=== PATIENT | male | born 1955 | race Caucasian/White ===

== ENCOUNTER 2023-02-09 21:03 | Observation (INO) ==
--- NOTE | 2023-02-09 21:13 | EKG ---
Test Reason : chest pain Blood Pressure : */* mmHG Vent. Rate : 108 BPM Atrial Rate : 108 BPM P-R Int : 168 ms QRS Dur : 86 ms QT Int : 346 ms P-R-T Axes : 37 -41 1 degrees QTc Int : 463 ms Sinus tachycardia Left axis deviation Cannot rule out Anterior infarct , age undetermined Abnormal ECG No previous ECGs available Confirmed by Shane Doyle ([id number]) on 02/10/2023 8:21:03 AM Referred By: Confirmed By: Shane Doyle
--- NOTE | 2023-02-09 21:18 | DR.CP ---
HPI Time Seen Time Seen by Provider: 02/09/23 21:17 PCP Primary Care Physician: KASSI HPI Comment HPI Comment: PATIENT IS 67YR OLD MALE IN ER WITH SHARP 8/10 ABDOMINAL PAIN RADIATING TO ABDOMEN DOWN TO THE UMBILICUS. PATIENT IS NAUSEATED BUT NO VOMITING OR DIARRHEA. . NO DYSURIA. SIMILAR PAIN THE PAST BUT MORE SEVERE AND MORE PERSISTANT. NO SIGNIFICANT MEDICAL OR SURGICAL HISTORY. Complaint Chief Complaint Doctor Comments: CHEST PAIN, ABDOMINAL PAIN Chief Complaint:: PT C/O PAIN IN MID CHEST DOWN TO HIS LOWER ABD PT STATES" I'VE HAD THIS BEFORE AND DR SOLITARIO SAID IT WAS JUST GAS" COVID-19 Coronavirus risk:travel/contact w/high risk person: No Has patient experienced Coronavirus symptoms: No Reviewed Nurses Notes Review: Yes Source History Provided: Patient Mode of Arrival Mode of Arrival: Ambulatory Timing Onset of Chief Complaint: 02/09/23 Location Chest Pain Radiation Location: Abdomen Associated Signs and Symptoms Associated Signs and Symptoms: Abdominal Pain PMH PMH Past Medical History: No Past Surgical History: No Family History History of Family Medical Conditions: No Social History Does patient currently use any type of tobacco product: No Have you used tobacco products in the last 12 months: No Type of Tobacco Use: None Does any household member use tobacco: No Alcohol Use: None Do you use any recreational Drugs:: No Lives With: Family Lives Where: Home Travel Risk Coronavirus risk:travel/contact w/high risk person: No Has patient experienced Coronavirus symptoms: No Infectious screening In the last 2 months have you had wt loss of >10#?: NO Have you had fever, night sweats or hemotysis?: No Have you traveled outside the country in the last 6 months?: No Isolation: Standard ROS Review of Systems Constitutional: No Symptoms Reported; negative Fever, Weakness or Fatigue Eyes: No Symptoms Reported; negative Blurred Vision ENTM: No Symptoms Reported; negative Nose Discharge or Nose Congestion Respiratoy: No Symptoms Reported; negative Moist Cough or Short of Breath Cardiovascular: No Symptoms Reported; negative Chest Pain Gastrointestinal/Abdominal: No Symptoms Reported, Abdominal Pain and Nausea; negative Diarrhea or Vomiting Genitourinary: No Symptoms Reported; negative Dysuria, Frequency or Hematuria Neurological: Headache; negative Weakness or Dizziness Musculoskeletal: No Symptoms Reported; negative Muscle Pain Integumentary: No Symptoms Reported; negative Rash or Juandice Hematologic/Lymphatic: No Symptoms Reported; negative Easy Bruising Endocrine: No Symptoms Reported; negative Increased Thirst or Increased Urine Psychiatric: No Symptoms Reported All Other Systems: Reviewed and Negative PE Vitals Vitals: Pulse Rate 86 Pulse Rate 76 Pulse Rate 81 Pulse Rate 79 Pulse Rate 81 Pulse Rate 76 Pulse Rate 78 Pulse Rate 80 Pulse Rate 84 Pulse Rate 72 Pulse Rate 90 Pulse Rate 84 Pulse Rate 84 Pulse Rate 97 Pulse Rate 104 Pulse Rate 99 Pulse Rate 91 Pulse Rate 99 Pulse Rate 101 Pulse Rate 90 Pulse Rate 102 Pulse Rate 100 Respiratory Rate 18 Respiratory Rate 18 Respiratory Rate 21 Respiratory Rate 19 Blood Pressure [Left Arm] 118/71 Blood Pressure 119/77 Blood Pressure 117/70 Blood Pressure 109/68 Blood Pressure 118/71 Blood Pressure 122/72 Blood Pressure 121/71 Blood Pressure 120/71 Blood Pressure 116/67 Blood Pressure 125/72 Blood Pressure 138/74 Blood Pressure 125/69 Blood Pressure 115/65 Blood Pressure 156/87 Blood Pressure 125/70 Blood Pressure 141/92 Blood Pressure 147/80 Blood Pressure 144/79 O2 Sat by Pulse Oximetry 88 O2 Sat by Pulse Oximetry 93 O2 Sat by Pulse Oximetry 91 O2 Sat by Pulse Oximetry 95 O2 Sat by Pulse Oximetry 93 O2 Sat by Pulse Oximetry 95 O2 Sat by Pulse Oximetry 97 O2 Sat by Pulse Oximetry 93 O2 Sat by Pulse Oximetry 93 O2 Sat by Pulse Oximetry 96 O2 Sat by Pulse Oximetry 98 O2 Sat by Pulse Oximetry 76 O2 Sat by Pulse Oximetry 98 O2 Sat by Pulse Oximetry 97 O2 Sat by Pulse Oximetry 98 O2 Sat by Pulse Oximetry 99 O2 Sat by Pulse Oximetry 97 O2 Sat by Pulse Oximetry 99 O2 Sat by Pulse Oximetry 98 O2 Sat by Pulse Oximetry 99 O2 Sat by Pulse Oximetry 99 O2 Sat by Pulse Oximetry 98 General Limitations: No Limitations General Appearance: Alert and In No Apparent Distress Head Head Exam: Normal Inspection and Atraumatic Eyes Eye exam: Normal Appearance and PERRL; negative Scleral Icterus or Conjunctival Injection ENT ENT Exam: Normal Exam, Normal Oropharynx, Normal External Ear Exam and TM's Normal Bilaterally Chest Chest Inspection: Normal Inspection and Symmetric Chest Wall Rise; negative Tenderness Respiratory Respiratory Exam: Normal Lung Sounds Bilat; negative Accessory Muscle Use, Chest Wall Tenderness or Respiratory Distress Respiratory Exam: Bilateral: Clear to Auscultation Cardiovascular Cardiovascular Exam: Regular Rate, Normal Rhythm and Normal Heart Sounds; negative Systolic Murmur or Diastolic Murmur Pulse: Normal Edema: Normal Abdominal Exam Abdominal Exam: Normal Bowel Sounds, Soft and Tenderness Abdominal Tenderness: Diffuse and Moderate Extremities Extremities Exam: Normal Inspection, Tenderness and Normal Capillary Refill Back Back Exam: Normal Inspection; negative (R) CVA Tenderness or (L) CVA Tenderness Neurologic Neurological Exam: Alert and Oriented X3; negative Motor Sensory Deficit Psychiatric Psychiatric Exam: Normal Affect and Normal Mood Skin Skin Exam: Intact MDM Differential Diagnosis Differential Diagnosis: Angina, Chest Wall Pain, Costochondritis, Pericarditis, Pancreatitis and Pneumonia (BOWEL OBSTRUCTION, CHOLECYSTITIS, UTI.) COURSE Treatment Treatment: SEE ORDERS DONE WHILE PATIENT WAS IN ER. ROR Labs Reviewed Result Diagrams: 02/09/23 21:18 02/09/23 21:18 Laboratory: WBC 15.1 X10^3/uL (3.6-10.0) H 02/09/23 21:18 RBC 6.09 X10^6/uL (4.7-6.0) H 02/09/23 21:18 Hgb 19.7 g/dL (13.5-18.0) H* 02/09/23 21:18 Hct 56.1 % (42.0-54.0) H* 02/09/23 21:18 MCV 92.2 fL (80.0-100.0) 02/09/23 21:18 MCH 32.3 pg (27.0-34.0) 02/09/23 21:18 MCHC 35.0 g/dL (33.0-35.0) 02/09/23 21:18 RDW 13.2 % (11.6-16.5) 02/09/23 21:18 Plt Count 255 X10^3/uL (150.0-450.0) 02/09/23 21:18 MPV 7.9 fL (7.4-11.0) 02/09/23 21:18 Neut % (Auto) 87.5 % (42.0-75.0) H 02/09/23 21:18 Lymph % (Auto) 8.5 % (21.0-51.0) L 02/09/23 21:18 Motley % (Auto) 3.4 % (0.0-13.0) 02/09/23 21:18 Eos % (Auto) 0.1 % (0.9-2.9) L 02/09/23 21:18 Baso % (Auto) 0.5 % (0.2-1.0) 02/09/23 21:18 Neut # (Auto) 13.2 x10^3/uL (2.2-4.8) H 02/09/23 21:18 Lymph # (Auto) 1.3 X10^3/uL (1.3-2.9) 02/09/23 21:18 Motley # (Auto) 0.5 x10^3/uL (0.3-0.8) 02/09/23 21:18 Eos # (Auto) 0.0 x10^3/uL (0.0-0.2) 02/09/23 21:18 Baso # (Auto) 0.1 X10^3/uL (0.0-0.1) 02/09/23 21:18 Absolute Nucleated RBC 0.1 /100WBC 02/09/23 21:18 PT 12.8 SECONDS (11.8-14.3) 02/09/23 21:18 INR Target Range - 02/09/23 21:18 INR 0.98 (0.8-1.3) 02/09/23 21:18 APTT 32.1 SECONDS (22.9-36.5) 02/09/23 21:18 PTT Comment - 02/09/23 21:18 Sodium 139 mmol/L (136-145) 02/09/23 21:18 Corrected Sodium 141 mmol/L (136-145) 02/09/23 21:18 Potassium 3.6 mmol/L (3.5-5.1) 02/09/23 21:18 Chloride 101 mmol/L (98-107) 02/09/23 21:18 Carbon Dioxide 29.9 mmol/L (21-32) 02/09/23 21:18 BUN 9 mg/dL (7-18) 02/09/23 21:18 Creatinine 1.52 mg/dL (0.70-1.30) H 02/09/23 21:18 Est GFR (MDRD) Af Amer 59 (>60) 02/09/23 21:18 Est GFR (MDRD) Non-Af 49 (>60) L 02/09/23 21:18 Glucose 171 mg/dL (65-99) H 02/09/23 21:18 Calcium 9.2 mg/dL (8.5-10.1) 02/09/23 21:18 Corrected Calcium TNP 02/09/23 21:18 Total Bilirubin 0.70 mg/dL (0.2-1.0) 02/09/23 21:18 AST 28 Units/L (15-37) 02/09/23 21:18 ALT 35 Units/L (12-78) 02/09/23 21:18 Alkaline Phosphatase 81 Units/L (46-116) 02/09/23 21:18 Creatine Kinase 211 Units/L (39-308) 02/09/23 21:18 Troponin I High Sens 7.8 ng/L (4.0-60.0) 02/09/23 21:18 Total Protein 7.5 g/dL (6.4-8.2) 02/09/23 21:18 Albumin 4.3 g/dL (3.4-5.0) 02/09/23 21:18 Globulin 3.2 g/dL (2.5-4.5) 02/09/23 21:18 Albumin/Globulin Ratio 1.3 Ratio (1.1-2.1) 02/09/23 21:18 Opioid Opioid Risk Tool Age (Jorge box if 16-45): No History of Preadolescent Sexual Abuse: No Total: 0 Total Score Risk Category: Low Risk Copyright: Nima JASMINE predicting aberrant behaviors Discharge Plan Diagnosis Discharge Problem: Abdominal pain, Cholelithiasis, Enlarged prostate Discharge Plan Patient Disposition: ADMITTED INPATIENT Condition: Stable
[2023-02-09 21:28] LABS: BASOPHILS # (AUTO) 0.1 X10^3/uL (0.0-0.1); BASOPHILS % (AUTO) 0.5 % (0.2-1.0); EOSINOPHILS % (AUTO) 0.1 % (0.9-2.9); LYMPHOCYTES # (AUTO) 1.3 X10^3/uL (1.3-2.9); LYMPHOCYTES % (AUTO) 8.5 % (21.0-51.0); MEAN CORPUSCULAR HEMOGLOBIN 32.3 pg (27.0-34.0); MEAN CORPUSCULAR VOLUME 92.2 fL (80.0-100.0); MEAN PLATELET VOLUME 7.9 fL (7.4-11.0); MONOCYTES # (AUTO) 0.5 x10^3/uL (0.3-0.8); MONOCYTES % (AUTO) 3.4 % (0.0-13.0); NEUTROPHILS # (AUTO) 13.2 x10^3/uL (2.2-4.8); NEUTROPHILS % (AUTO) 87.5 % (42.0-75.0); PLATELET COUNT 255 X10^3/uL (150.0-450.0); RED BLOOD COUNT 6.09 X10^6/uL (4.7-6.0); RED CELL DISTRIBUTION WIDTH 13.2 % (11.6-16.5); WHITE BLOOD COUNT 15.1 X10^3/uL (3.6-10.0)
[2023-02-09 21:33] LABS: INR 0.98 (0.8-1.3)
[2023-02-09 21:35] LABS: HEMATOCRIT 56.1 % (42.0-54.0)
[2023-02-09 21:36] LABS: HEMOGLOBIN 19.7 g/dL (13.5-18.0)
[2023-02-09 21:44] LABS: ALANINE AMINOTRANSFERASE 35 Units/L (12-78); ALBUMIN 4.3 g/dL (3.4-5.0); ALKALINE PHOSPHATASE 81 Units/L (46-116); ASPARTATE AMINO TRANSFERASE 28 Units/L (15-37); BLOOD UREA NITROGEN 9 mg/dL (7-18); CALCIUM 9.2 mg/dL (8.5-10.1); CARBON DIOXIDE 29.9 mmol/L (21-32); CHLORIDE 101 mmol/L (98-107); COR NA(FOR HYPERGLY) 141 mmol/L (136-145); CREATINE KINASE 211 Units/L (39-308); CREATININE 1.52 mg/dL (0.70-1.30); GLUCOSE 171 mg/dL (65-99); POTASSIUM 3.6 mmol/L (3.5-5.1); SODIUM 139 mmol/L (136-145); TOTAL PROTEIN 7.5 g/dL (6.4-8.2); eGFR NON BLACK RACES 49 (>60)
[2023-02-09] MEDS ORDERED: LEVSIN/MAALOX/LIDOC VISC PO ONE (21:45)
[2023-02-09] MEDS ORDERED: PEPCID 20 MG VIAL 20 MG in NS 50 ML IV 50 ML IV ONE (21:50)
[2023-02-09] MEDS ORDERED: PEPCID 20 MG VIAL ONE (21:51)
[2023-02-09] MEDS ORDERED: NS 50 ML IV 50 ML IV ONE (21:51)
[2023-02-09] MEDS ORDERED: DEMEROL INJ IVP ONE (22:15)
[2023-02-09] MEDS ORDERED: ZOFRAN INJ 4 MG VIAL IVP ONE (22:15)
[2023-02-09] MEDS ORDERED: DEMEROL INJ ONE (22:20)
[2023-02-09] MEDS ORDERED: ZOFRAN INJ 4 MG VIAL ONE (22:20)
--- NOTE | 2023-02-09 22:56 | CT ---
PROCEDURE: CT Abdomen and Pelvis without Contrast .HISTORY: Severe abdomen pain.TECHNIQUE: Axial images were performed through the abdomen and pelvis without the administration of IV contrast with multiplanar reformations . Oral contrast was not administered . Dose reduction techniques including Automated Exposure Control (AEC) and adjustment of mA and kV were utilized .COMPARISON: None .TECHNICAL QUALITY: Satisfactory .FINDINGS:Clear lung bases.Liver, spleen, adrenals, pancreas show no abnormality.Kidneys show no stones or obstruction.Possible tiny stone in the gallbladder near the neck with no inflammation and normal biliary tree.No ascites or pneumoperitoneum.Mild atherosclerosis aorta.No lymphadenopathy.No bowel obstruction or inflammation. Mild colonic diverticulosis. Normal appendix.Pelvis shows no masses or free fluid. Mild prostatomegaly. Normal urinary bladder.No acute bony abnormality.IMPRESSION:1. Possible cholelithiasis.2. Mild colonic diverticulosis.3. Mild prostatomegaly.4. No other significant abnormality identified.Electronically signed by: Yung Tillman (February 09, 2023 22:55:19)
--- NOTE | 2023-02-09 23:26 | RAD ---
HISTORYPT C/O PAIN IN MID CHEST DOWN TO HIS LOWER ABD PT STATES" I'VE HAD THIS BEFORE AND DR SOLITARIO SAID IT WAS JUST GAS"STUDYCHEST, 1 VIEWCOMPARISONNone availableTECHNIQUEChest radiographic imaging, AP portable projection, 1 imageFINDINGSNo cardiomegaly.No focal airspace disease.Mild increased interstitial markings.No pleural effusion.No pneumothorax.No acute osseous abnormality.IMPRESSIONFindings could represent mild cardiogenic edema and/or chronic interstitial changes.Electronically signed by: Jad Salazar (February 09, 2023 23:25:51)
[2023-02-10] MEDS ORDERED: ZOFRAN INJ 4 MG VIAL IVP PRN (01:49)
[2023-02-10] MEDS ORDERED: DILAUDID INJ IVP PRN (01:49)
[2023-02-10] MEDS ORDERED: NS 1,000 ML IV 1,000 ML ONE (01:57)
[2023-02-10] MEDS: NS 1,000 ML IV 1,000 ML IV SCH ×4 (02:15→21:02)
[2023-02-10 02:33] VITALS: BMI 24.0
[2023-02-10 06:18] LABS: BASOPHILS % (AUTO) 0.2 % (0.2-1.0); HEMATOCRIT 48.7 % (42.0-54.0); HEMOGLOBIN 17.1 g/dL (13.5-18.0); LYMPHOCYTES % (AUTO) 5.2 % (21.0-51.0); MEAN CORPUSCULAR HEMOGLOBIN 32.2 pg (27.0-34.0); MEAN CORPUSCULAR HGB CONC 35.1 g/dL (33.0-35.0); MEAN CORPUSCULAR VOLUME 91.8 fL (80.0-100.0); MEAN PLATELET VOLUME 7.9 fL (7.4-11.0); MONOCYTES # (AUTO) 1.3 x10^3/uL (0.3-0.8); MONOCYTES % (AUTO) 6.9 % (0.0-13.0); NEUTROPHILS # (AUTO) 16.8 x10^3/uL (2.2-4.8); NEUTROPHILS % (AUTO) 87.7 % (42.0-75.0); PLATELET COUNT 234 X10^3/uL (150.0-450.0); RED CELL DISTRIBUTION WIDTH 13.1 % (11.6-16.5); WHITE BLOOD COUNT 19.1 X10^3/uL (3.6-10.0)
[2023-02-10 06:45] LABS: ALANINE AMINOTRANSFERASE 30 Units/L (12-78); ALBUMIN 3.5 g/dL (3.4-5.0); ALKALINE PHOSPHATASE 61 Units/L (46-116); AMYLASE 84 Units/L (25-115); ASPARTATE AMINO TRANSFERASE 25 Units/L (15-37); BLOOD UREA NITROGEN 11 mg/dL (7-18); CALCIUM 8.2 mg/dL (8.5-10.1); CARBON DIOXIDE 26.6 mmol/L (21-32); CHLORIDE 105 mmol/L (98-107); COR NA(FOR HYPERGLY) 140 mmol/L (136-145); CREATININE 1.36 mg/dL (0.70-1.30); GLUCOSE 118 mg/dL (65-99); LIPASE 260 Units/L (73-393); MAGNESIUM 2.2 mg/dL (2.0-2.9); SODIUM 140 mmol/L (136-145); TOTAL PROTEIN 6.4 g/dL (6.4-8.2); eGFR NON BLACK RACES 55 (>60)
[2023-02-10] MEDS ORDERED: CIPRO IV 400 MG PREMIX* 400 MG/200 ML IV.SOLN. IV SCH (10:00)
[2023-02-10] MEDS: LEVAQUIN PREMIX IV 500 MG 500 MG/100 ML BAG IV SCH (11:27)
--- NOTE | 2023-02-10 12:52 | US ---
HISTORY: Right upper quadrant abdominal pain.Study: Right upper quadrant abdominal ultrasoundComparison: None availableTechnique: Multiple jerome scale and color flow Doppler images of the right upper quadrant were obtained.Findings:The liver is homogeneously echogenic/fatty in appearance. No focal intraparenchymal mass or intrahepatic biliary ductal dilatation can be observed. The gallbladder is distended and filled with gallbladder sludge and gallstones. The common bile duct is unremarkable measuring 2 mm. [No pericholecystic fluid or gallbladder wall thickening can be observed]. The CBD measures [within normal limits]. The right kidney appears normal in size without focal parenchymal mass or nephrolithiasis. The right kidney measurers 10 x 5 cm. No hydronephrosis or perirenal fluid can be observed. The pancreas is largely obscured by overlying bowel gas. No ascites or focal fluid collection is identified on this exam.IMPRESSION: The liver is homogeneously echogenic/fatty in appearance, suggesting hepatic steatosis. The gallbladder is filled with gallbladder sludge and several small gallstones without convincing sonographic evidence for acute cholecystitis. No other RUQ abnormalities seen.Electronically signed by: CHRISTIANNE GAMINO III (February 10, 2023 12:52:06)
[2023-02-10 18:26] LABS: BILIRUBIN,URINE NEGATIVE (NEGATIVE); BLOOD/HEMOGLOBIN,URINE NEGATIVE (NEGATIVE); GLUCOSE, URINE NEGATIVE (NEGATIVE); KETONES,URINE 1+ (NEGATIVE); LEUKOCYTE ESTERASE ,URINE 1+ (NEGATIVE); NITRITES,URINE NEGATIVE (NEGATIVE); PROTEIN,URINE 1+ (NEGATIVE); UROBILINOGEN,URINE NORMAL (NORMAL)
[2023-02-10 18:35] LABS: APPEARANCE,URINE CLEAR (CLEAR); COLOR,URINE DARK YELLOW (YELLOW)
[2023-02-10 18:36] LABS: BACTERIA,URINE NEGATIVE /HPF (NEGATIVE); RBC,URINE NONE SEEN /HPF (0-3); SQUAMOUS EPITHELIAL CELL,UR RARE /HPF (NEGATIVE)
--- NOTE | 2023-02-10 22:08 | DR.H&P ---
H&P - History & Physical for Day of: H&P Date: 02/10/23 - Chief Complaint Chief Complaint: ABDOMINAL PAIN, CHEST PAIN, NAUSEA - History of Present Illness History of Present Illness: IS A 67 YEAR OLD PATIENT OF OURS. HE PRESENTED TO THE ER WITH COMPLAINTS OF CHEST PAIN AND ABDOMINAL PAIN. PAIN STARTS IN THE CHEST AND RADIATES DOWN TO THE UMBILICUS. HE RATES ABDOMINAL PAIN AN 8/10. HE DESCRIBES PAIN INTERMITTENT AND CRAMPING. HE ADMITS TO NAUSEA, BUT DENIES VOMITING OR DIARRHEA. HE RATES CHEST PAIN A 4/10 AND DESCRIBES IT INTERMITTENT AND CRAMPING. HE DENIES PAST OR PRESENT MEDICAL HISTORY AND IS NOT CURRENTLY ON ANY MEDICATIONS. EXAMINATION REVEALED DIFFUSE TENDERNESS UPON PALPATION OF THE ABDOMEN. NORMAL BOWEL SOUNDS ARE NOTED IN ALL QUADRANTS. NO REBOUND TENDERNESS NOTED. ON ARRIVAL TO THE ER, HIS VITALS WERE: 98. 6-97-20-100%-162/92. LABS WERE OBTAINED. WBC 15.1, RBC 6.09, HGB 19.7, HCT 56.1, PLT COUNT 255, PT 12.8, INR 0.98, PTT 32.1, SODIUM 139, POTASSIUM 3.6, CHLORIDE 101, CARBON DIOXIDE 29.9, BUN 9, CREATININE 1.52, GLUCOSE 271, CALCIUM 9.2, AST 28, ALT 35, ALK PHOS 81, CREATINE KINASE 211, TROPONIN 7.8, TOTAL PROTEIN 7.5, ALBUMIN 4.3. A URINALYSIS WAS OBTAINED AND REVEALED: WBC 3-5, RBC NONE SEEN, NASIR KOCYTES 1+, BACTERIA NEGATIVE, NITRITE NEGATIVE. A URINE CULTURE WAS SET UP. A CHEST XRAY WAS OBTAINED AND REVEALED: Findings could represent mild cardiogenic edema and/or chronic interstitial changes. AN ABDOMEN/PELVIS CT WITHOUT CONTRAST WAS OBTAINED AND REVEALED: 1. Possible cholelithiasis. 2. Mild colonic diverticulosis. 3. Mild prostatomegaly. 4. No other significant abnormality identified. EKG REVEALED: SINUS TACHYCARDIA WITH HR 108. IN THE ER, SHE WAS GIVEN PEPCID 20MG IV X 1 DOSE, DEMEROL 25MG IV X 1, ZOFRAN 4MG IV X 1 DOSE. HE ADMITTED TO RELIEF OF PAIN AFTER RECEIVING THE DEMEROL. PATIENT WAS ADMITTED TO THE HOSPITAL OBSERVATION STATUS FOR FURTHER EVALUATION AND TREATMENT OF ABDOMINAL PAIN, CHOLELITHIASIS, AND LEUKOCYTOSIS. HE WAS STARTED ON NORMAL SALINE AT 100 ML/HR, LEVAQUIN 500MG IV DAILY, ZOFRAN 4MG IV Q6H PRN, AND DILAUDID 1MG IV Q6H PRN. WE WILL HOLD HIM NPO AND OBTAIN A GALLBLADDER ULTRASOUND. WE WILL CONSULT , GENERAL SURGEON. OTHERWISE, WE WILL FOLLOW-UP WITH AM LABS AND CONTINUE TO MONITOR. TIME SPENT ON CLINICAL ASSESSMENT, REVIEWING LABS AND IMAGING, DECISION MAKING, AND DOCUMENTATION GREATER THAN 75 MINUTES. - Past Medical History Additional Medical History: NO MEDICAL HISTORY - Past Surgical History Additional Surgical History: EYE SURGERY - Social History Does patient currently use any type of tobacco product: No Have you used tobacco products in the last 12 months: No Type of Tobacco Use: None Does any household member use tobacco: No Alcohol Use: None Drug Use: None - Medications Home Medications: Home Medications Medication Instructions Recorded Confirmed Type NK 02/10/23 02/10/23 History - Review of Systems Constitutional: Weakness Eyes: No Symptoms Reported Respiratory: No Symptoms Reported Cardiovascular: Chest Pain Gastrointestinal: Nausea, Abdominal Pain, Melena. denies: Vomiting, Diarrhea, Hematochezia Genitourinary: No Symptoms Reported Musculoskeletal: No Symptoms Reported Skin: No Symptoms Reported Neurological: Weakness - Physical Exam Vital Signs: Temperature 99.4 F Temperature 98.6 F Pulse Rate [Left] 111 Pulse Rate [Left] 107 Respiratory Rate 18 Respiratory Rate 18 Blood Pressure [Left Arm] 144/78 Blood Pressure [Left Arm] 137/76 O2 Sat by Pulse Oximetry 94 O2 Sat by Pulse Oximetry 95 Oriented: Normal Eyes: Normal Ear: Normal Nose: Normal Throat: Normal Respiratory: Diminished Throughout Cardiovascular: Normal : Normal Auscultation: Bowel Sounds: Normal Palpation: Normal Tenderness: Diffuse, Moderate. negative: Rebound, Guarding, Rigidity Skin: Normal Musculoskeletal: Normal Psychiatric: Normal Mood Description: Calm Affect: Normal Speech Pattern: Clear - Assessment/Plan (1) Abdominal pain Qualifiers: Abdominal location: generalized Qualified Code(s): R10.84 - Generalized abdominal pain Status: Acute Plan: ADMIT, NORMAL SALINE AT 100 ML/HR, LEVAQUIN 500MG IV DAILY, ZOFRAN 4MG IV Q6H PRN, AND DILAUDID 1MG IV Q6H PRN. OBTAIN GALLBLADDER ULTRASOUND (2) Leukocytosis Qualifiers: Leukocytosis type: unspecified Qualified Code(s): D72.829 - Elevated white blood cell count, unspecified Status: Acute (3) Cholelithiasis Qualifiers: Cholelithiasis location: gallbladder Cholecystitis presence: without cholecystitis Biliary obstruction: without biliary obstruction Qualified Code(s): K80.20 - Calculus of gallbladder without cholecystitis without obstruction Status: Acute (4) Enlarged prostate Status: Acute - Allergies Allergies/Adverse Reactions: Allergies Allergy/AdvReac Type Severity Reaction Status Date / Time No Known Allergies Allergy Verified 02/09/23 21:45
[2023-02-11 05:48] LABS: BASOPHILS # (AUTO) 0.1 X10^3/uL (0.0-0.1); BASOPHILS % (AUTO) 0.4 % (0.2-1.0); EOSINOPHILS # (AUTO) 0.2 x10^3/uL (0.0-0.2); EOSINOPHILS % (AUTO) 1.6 % (0.9-2.9); HEMATOCRIT 46.6 % (42.0-54.0); HEMOGLOBIN 16.2 g/dL (13.5-18.0); LYMPHOCYTES # (AUTO) 1.2 X10^3/uL (1.3-2.9); LYMPHOCYTES % (AUTO) 10.4 % (21.0-51.0); MEAN CORPUSCULAR HEMOGLOBIN 32.4 pg (27.0-34.0); MEAN CORPUSCULAR HGB CONC 34.8 g/dL (33.0-35.0); MEAN CORPUSCULAR VOLUME 93.1 fL (80.0-100.0); MEAN PLATELET VOLUME 7.8 fL (7.4-11.0); MONOCYTES # (AUTO) 1.2 x10^3/uL (0.3-0.8); NEUTROPHILS # (AUTO) 9.1 x10^3/uL (2.2-4.8); NEUTROPHILS % (AUTO) 77.6 % (42.0-75.0); PLATELET COUNT 200 X10^3/uL (150.0-450.0); RED CELL DISTRIBUTION WIDTH 13.4 % (11.6-16.5); WHITE BLOOD COUNT 11.7 X10^3/uL (3.6-10.0)
[2023-02-11 06:08] LABS: ALANINE AMINOTRANSFERASE 25 Units/L (12-78); ALBUMIN 3.1 g/dL (3.4-5.0); ALKALINE PHOSPHATASE 54 Units/L (46-116); ASPARTATE AMINO TRANSFERASE 27 Units/L (15-37); BLOOD UREA NITROGEN 11 mg/dL (7-18); CALCIUM 7.8 mg/dL (8.5-10.1); CARBON DIOXIDE 25.7 mmol/L (21-32); CHLORIDE 106 mmol/L (98-107); COR CA(FOR HYPOALB) 8.5 mg/dL (8.5-10.1); CREATININE 1.37 mg/dL (0.70-1.30); GLUCOSE 94 mg/dL (65-99); SODIUM 141 mmol/L (136-145); eGFR NON BLACK RACES 55 (>60)
[2023-02-11] MEDS: LEVAQUIN PREMIX IV 500 MG 500 MG/100 ML BAG IV SCH (08:17)
[2023-02-11] MEDS: NS 1,000 ML IV 1,000 ML IV SCH ×2 (08:17→17:04)
[2023-02-11] MEDS ORDERED: ZOFRAN INJ 4 MG VIAL ONE (08:22)
[2023-02-11] MEDS ORDERED: PEPCID 20 MG VIAL ONE (08:22)
[2023-02-11] MEDS ORDERED: FENTANYL VIAL INJ 100 mcg ONE (08:24)
[2023-02-11] MEDS ORDERED: ZEMURON 100 MG VIAL ONE (08:24)
[2023-02-11] MEDS ORDERED: VERSED ONE (08:24)
[2023-02-11] MEDS ORDERED: BRIDION ONE (08:28)
[2023-02-11] MEDS ORDERED: DIPRIVAN VIAL 20 ML ONE (08:28)
[2023-02-11] MEDS ORDERED: ULTANE GAS IN ONE ×2 (10:13→11:55)
[2023-02-11] MEDS ORDERED: OFIRMEV IV 1000 MG VIAL 1,000 MG/100 ML VIAL IV ONE (11:28)
[2023-02-11] MEDS ORDERED: ANCEF VIAL 1 GRAM ONE (11:40)
[2023-02-11] MEDS ORDERED: NS 100 ML IV 100 ML ONE (11:40)
[2023-02-11] MEDS ORDERED: BACTROBAN TOPICAL OINT ONE (11:45)
[2023-02-11] MEDS ORDERED: XYLOCAINE 2 % (PLAIN) ONE (11:55)
[2023-02-11] MEDS ORDERED: KETAMINE HCL ONE (11:55)
[2023-02-11] MEDS ORDERED: DECADRON INJ ONE (12:18)
[2023-02-11] MEDS ORDERED: TORADOL 30 MG VIAL ONE (12:39)
[2023-02-11] MEDS ORDERED: NS 1,000 ML IV 1,000 ML ONE (12:56)
[2023-02-11] MEDS ORDERED: MORPHINE SULFATE INJ 10 MG ONE (13:04)
[2023-02-11] MEDS ORDERED: BENADRYL INJ 50 MG VIAL IVP PRN (13:22)
[2023-02-11] MEDS ORDERED: BARHEMSYS INJ IVP PRN (13:22)
[2023-02-11] MEDS ORDERED: DILAUDID INJ IVP PRN (13:22)
[2023-02-11] MEDS ORDERED: STERILE WATER IRRIGATION IR ONE (14:24)
--- NOTE | 2023-02-11 16:36 | PCM.PROG ---
Progress Note - Progress Note for Day of Date of Exam: 02/11/23 - Subjective Subjective: IS CURRENTLY OBSERVATION STATUS FOR TREATMENT OF ABDOMINAL PAIN, CHOLELITHIASIS, AND LEUKOCYTOSIS. TODAY, HE IS ALERT AND ORIENTED, LYING IN BED ON MORNING ROUNDS. HE CONTINUE TO COMPLAIN OF DIFFUSE ABDOMINAL PAIN AND OCCASIONAL NAUSEA. HE DENIES CHEST PAIN THIS MORNING. HE DOES REPORT SLIGHT IMPROVEMENT IN SYMPTOMS SINCE ADMISSION. HE WAS AFEBRILE THROUGHOUT THE NIGHT. ON EXAMINATION, HEART IS REGULAR IN RATE AND RHYTHM. BILATERAL LUNGS ARE CLEAR TO AUSCULTATION. ABDOMEN IS ROUND, SOFT, AND NOTED WITH DIFFUSE TENDERNESS ON EXAMINATION. NORMAL BOWEL SOUNDS ARE NOTED IN ALL QUADRANTS. GOOD MOVEMENT NOTED TO UPPER AND LOWER EXTREMITIES WITH NO EDEMA NOTED. HIS VITALS THIS MORNING ARE: 98.2-100-18-96%-121/68. LABS WERE OBTAINED. WBC 11.7, RBC 5.00, HGB 16.2, HCT 46.6, PLT COUNT 200, SODIUM 141, POTASSIUM 4.0, CHLORIDE 106, BUN 11, CREATININE 1.37, GLUCOSE 94, CALCIUM 7.8, TOTAL BILI 1.40, AST 27, ALT 25, ALK PHOS 54, TOTAL PROTEIN 6.0, ALBUMIN 3.1. URINALYSIS WAS OBTAINED LAST NIGHT AND REVEALED: WBC 3-5, BACTERIA NEGATIVE, LEUKOCYTES 1+, NITRITES NEGATIVE. A URINE CULTURE IS PENDING. A GALLBLADDER ULTRASOUND WAS OBTAINED YESTERDAY AND REVEALED: The liver is homogeneously echogenic/fatty in appearance, suggesting hepatic steatosis. The gallbladder is filled with gallbladder sludge and several small gallstones without convincing sonographic evidence for acute cholecystitis. No other RUQ abnormalities seen. HE IS CURRENTLY RECEIVING NORMAL SALINE AT 100 ML/HR, LEV AQUIN 500MG IV DAILY, ZOFRAN 4MG IV Q6H PRN, AND DILAUDID 1MG IV Q6H PRN. 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 HE PLANS FOR LAPROSCOPIC CHOLECYSTECTOMY TODAY. WE ARE IN AGREEMENT WITH PLANS AND PATIENT IS MEDICALLY STABLE AND CLEARED FOR PROCEDURE. OTHERWISE, WE WILL CONTINUE WITH CURRENT PLAN OF CARE. WE PLAN TO FOLLOW-UP WITH AM LABS AND CONTINUE TO MONITOR. TIME SPENT ON CLINICAL ASSESSMENT, REVIEWING LABS AND IMAGING, DECISION MAKING, AND DOCUMENTATION GREATER THAN 45 MINUTES. - Past Medical Family Social History Past Med/Fam/Surg Hx: No changes since H&P Allergies: Allergies No Known Allergies Allergy (Verified 02/09/23 21:45) - Review of Systems ROS: No change since H&P - Vital Signs and I&O's Vital Signs: Temperature 98.0 F Temperature 98.1 F Temperature 98.1 F Temperature 97.5 F Temperature 97.3 F Temperature 97.3 F Temperature 97.3 F Temperature 97.3 F Temperature 97.3 F Temperature 97.3 F Temperature 97.3 F Temperature 98 F Pulse Rate [Left] 94 Pulse Rate [Left] 92 Pulse Rate [Left] 99 Pulse Rate [Left] 94 Pulse Rate [Left] 101 Pulse Rate 97 Pulse Rate 93 Pulse Rate 94 Pulse Rate 94 Pulse Rate 93 Pulse Rate 96 Pulse Rate 97 Pulse Rate 106 Respiratory Rate 18 Respiratory Rate 18 Respiratory Rate 18 Respiratory Rate 18 Respiratory Rate 18 Respiratory Rate 18 Respiratory Rate 16 Respiratory Rate 16 Respiratory Rate 16 Respiratory Rate 16 Respiratory Rate 16 Respiratory Rate 16 Respiratory Rate 16 Respiratory Rate 16 Respiratory Rate 16 Respiratory Rate 16 Respiratory Rate 16 Blood Pressure [Left Arm] 123/74 Blood Pressure [Left Arm] 122/79 Blood Pressure [Left Arm] 124/74 Blood Pressure [Left Arm] 130/75 Blood Pressure [Left Arm] 140/74 Blood Pressure 127/83 Blood Pressure 137/80 Blood Pressure 123/78 Blood Pressure 127/78 Blood Pressure 121/76 Blood Pressure 120/79 Blood Pressure 120/79 Blood Pressure 123/72 O2 Sat by Pulse Oximetry 96 O2 Sat by Pulse Oximetry 95 O2 Sat by Pulse Oximetry 96 O2 Sat by Pulse Oximetry 95 O2 Sat by Pulse Oximetry 96 O2 Sat by Pulse Oximetry 91 O2 Sat by Pulse Oximetry 96 O2 Sat by Pulse Oximetry 96 O2 Sat by Pulse Oximetry 96 O2 Sat by Pulse Oximetry 96 O2 Sat by Pulse Oximetry 96 O2 Sat by Pulse Oximetry 95 O2 Sat by Pulse Oximetry 95 O2 Sat by Pulse Oximetry 95 Intake and Output: Intake & Output 02/09/23 02/10/23 02/11/23 02/12/23 11:59 11:59 11:59 11:59 Intake Total 404 / 404 3373 / 3373 2547 / 2547 Output Total 1020 / 1020 Balance 404 / 404 3373 / 3373 1527 / 1527 - Physical Exam Oriented: Normal Eyes: Normal Ear: Normal Nose: Normal Throat: Normal Respiratory: Generalized, Diminished Cardiovascular: Normal : Normal Auscultation: Bowel Sounds: Normal Palpation: Normal Tenderness: Diffuse, Moderate. negative: Rebound, Guarding, Rigidity Skin: Normal Musculoskeletal: Normal Psychiatric: Normal Mood Description: Calm Affect: Normal Speech Pattern: Clear, Appropriate - Laboratory and Diagnostics Result Diagrams: 02/11/23 05:06 02/11/23 05:06 Labs: 02/10/23 18:10 Urine,Clean Catch Urine Culture - Preliminary Laboratory WBC 11.7 X10^3/uL (3.6-10.0) H 02/11/23 05:06 RBC 5.00 X10^6/uL (4.7-6.0) 02/11/23 05:06 Hgb 16.2 g/dL (13.5-18.0) 02/11/23 05:06 Hct 46.6 % (42.0-54.0) 02/11/23 05:06 MCV 93.1 fL (80.0-100.0) 02/11/23 05:06 MCH 32.4 pg (27.0-34.0) 02/11/23 05:06 MCHC 34.8 g/dL (33.0-35.0) 02/11/23 05:06 RDW 13.4 % (11.6-16.5) 02/11/23 05:06 Plt Count 200 X10^3/uL (150.0-450.0) 02/11/23 05:06 MPV 7.8 fL (7.4-11.0) 02/11/23 05:06 Neut % (Auto) 77.6 % (42.0-75.0) H 02/11/23 05:06 Lymph % (Auto) 10.4 % (21.0-51.0) L 02/11/23 05:06 [place] % (Auto) 10.0 % (0.0-13.0) 02/11/23 05:06 Eos % (Auto) 1.6 % (0.9-2.9) 02/11/23 05:06 Baso % (Auto) 0.4 % (0.2-1.0) 02/11/23 05:06 Neut # (Auto) 9.1 x10^3/uL (2.2-4.8) H 02/11/23 05:06 Lymph # (Auto) 1.2 X10^3/uL (1.3-2.9) L 02/11/23 05:06 [place] # (Auto) 1.2 x10^3/uL (0.3-0.8) H 02/11/23 05:06 Eos # (Auto) 0.2 x10^3/uL (0.0-0.2) 02/11/23 05:06 Baso # (Auto) 0.1 X10^3/uL (0.0-0.1) 02/11/23 05:06 Absolute Nucleated RBC 0.1 /100WBC 02/11/23 05:06 PT 12.8 SECONDS (11.8-14.3) 02/09/23 21:18 INR Target Range - 02/09/23 21:18 INR 0.98 (0.8-1.3) 02/09/23 21:18 APTT 32.1 SECONDS (22.9-36.5) 02/09/23 21:18 PTT Comment - 02/09/23 21:18 Sodium 141 mmol/L (136-145) 02/11/23 05:06 Corrected Sodium TNP 02/11/23 05:06 Potassium 4.0 mmol/L (3.5-5.1) 02/11/23 05:06 Chloride 106 mmol/L (98-107) 02/11/23 05:06 Carbon Dioxide 25.7 mmol/L (21-32) 02/11/23 05:06 BUN 11 mg/dL (7-18) 02/11/23 05:06 Creatinine 1.37 mg/dL (0.70-1.30) H 02/11/23 05:06 Est GFR (MDRD) Af Amer > 60 (>60) 02/11/23 05:06 Est GFR (MDRD) Non-Af 55 (>60) L 02/11/23 05:06 Glucose 94 mg/dL (65-99) 02/11/23 05:06 Calcium 7.8 mg/dL (8.5-10.1) L 02/11/23 05:06 Corrected Calcium 8.5 mg/dL (8.5-10.1) 02/11/23 05:06 Magnesium 2.2 mg/dL (2.0-2.9) 02/10/23 05:19 Total Bilirubin 1.40 mg/dL (0.2-1.0) H 02/11/23 05:06 AST 27 Units/L (15-37) 02/11/23 05:06 ALT 25 Units/L (12-78) 02/11/23 05:06 Alkaline Phosphatase 54 Units/L (46-116) 02/11/23 05:06 Creatine Kinase 211 Units/L (39-308) 02/09/23 21:18 Troponin I High Sens 7.8 ng/L (4.0-60.0) 02/09/23 21:18 Total Protein 6.0 g/dL (6.4-8.2) L 02/11/23 05:06 Albumin 3.1 g/dL (3.4-5.0) L 02/11/23 05:06 Globulin 2.9 g/dL (2.5-4.5) 02/11/23 05:06 Albumin/Globulin Ratio 1.1 Ratio (1.1-2.1) 02/11/23 05:06 Amylase 84 Units/L (25-115) 02/10/23 05:19 Lipase 260 Units/L (73-393) 02/10/23 05:19 Specimen Type Clean catch urine 02/10/23 18:10 Urine Color Dark yellow (YELLOW) 02/10/23 18:10 Urine Appearance Clear (CLEAR) 02/10/23 18:10 Urine pH 8.0 (5.0 - 8.0) 02/10/23 18:10 Ur Specific [place] 1.010 (1.000-1.030) 02/10/23 18:10 Urine Protein 1+ (NEGATIVE) 02/10/23 18:10 Urine Glucose (UA) Negative (NEGATIVE) 02/10/23 18:10 Urine Ketones 1+ (NEGATIVE) 02/10/23 18:10 Urine Blood Negative (NEGATIVE) 02/10/23 18:10 Urine Nitrite Negative (NEGATIVE) 02/10/23 18:10 Urine Bilirubin Negative (NEGATIVE) 02/10/23 18:10 Urine Urobilinogen Normal (NORMAL) 02/10/23 18:10 Ur Leukocyte Esterase 1+ (NEGATIVE) 02/10/23 18:10 Urine RBC None seen /HPF (0-3) 02/10/23 18:10 Urine WBC 3-5 /HPF (0-5) 02/10/23 18:10 Ur Squamous Epith Cells Rare /HPF (NEGATIVE) 02/10/23 18:10 Amorphous Sediment 1+ /HPF (NEGATIVE) 02/10/23 18:10 Urine Bacteria Negative /HPF (NEGATIVE) 02/10/23 18:10 Ur Culture Indicated? Yes/culture set up 02/10/23 18:10 - Plan (1) Abdominal pain Status: Acute Qualifiers: Abdominal location: generalized Qualified Code(s): R10.84 - Generalized abdominal pain Plan: NORMAL SALINE AT 100 ML/HR, LEVAQUIN 500MG IV DAILY, ZOFRAN 4MG IV Q6H PRN, AND DILAUDID 1MG IV Q6H PRN. LAPROSCOPIC CHOLECYSTECTOMY TODAY (2) Leukocytosis Status: Acute Qualifiers: Leukocytosis type: unspecified Qualified Code(s): D72.829 - Elevated white blood cell count, unspecified (3) Cholelithiasis Status: Acute Qualifiers: Cholelithiasis location: gallbladder Cholecystitis presence: without cholecystitis Biliary obstruction: without biliary obstruction Qualified Code(s): K80.20 - Calculus of gallbladder without cholecystitis without obstruction Plan: LAPROSCOPIC CHOLECYSTECTOMY TODAY (4) Enlarged prostate Status: Acute
[2023-02-12] MEDS: NS 1,000 ML IV 1,000 ML IV SCH ×2 (00:33→04:49)
[2023-02-12 06:00] LABS: BASOPHILS % (AUTO) 0.2 % (0.2-1.0); EOSINOPHILS % (AUTO) 0.1 % (0.9-2.9); HEMOGLOBIN 16.3 g/dL (13.5-18.0); LYMPHOCYTES # (AUTO) 1.1 X10^3/uL (1.3-2.9); LYMPHOCYTES % (AUTO) 6.7 % (21.0-51.0); MEAN CORPUSCULAR HEMOGLOBIN 32.8 pg (27.0-34.0); MEAN CORPUSCULAR HGB CONC 35.5 g/dL (33.0-35.0); MEAN CORPUSCULAR VOLUME 92.3 fL (80.0-100.0); MEAN PLATELET VOLUME 8.1 fL (7.4-11.0); MONOCYTES # (AUTO) 1.2 x10^3/uL (0.3-0.8); MONOCYTES % (AUTO) 7.5 % (0.0-13.0); NEUTROPHILS # (AUTO) 13.6 x10^3/uL (2.2-4.8); NEUTROPHILS % (AUTO) 85.5 % (42.0-75.0); PLATELET COUNT 224 X10^3/uL (150.0-450.0); RED BLOOD COUNT 4.98 X10^6/uL (4.7-6.0); RED CELL DISTRIBUTION WIDTH 13.2 % (11.6-16.5); WHITE BLOOD COUNT 15.9 X10^3/uL (3.6-10.0)
[2023-02-12 06:08] LABS: ALANINE AMINOTRANSFERASE 92 Units/L (12-78); ALKALINE PHOSPHATASE 74 Units/L (46-116); ASPARTATE AMINO TRANSFERASE 82 Units/L (15-37); BLOOD UREA NITROGEN 12 mg/dL (7-18); CARBON DIOXIDE 26.3 mmol/L (21-32); CHLORIDE 105 mmol/L (98-107); COR CA(FOR HYPOALB) 8.8 mg/dL (8.5-10.1); CREATININE 1.27 mg/dL (0.70-1.30); GLUCOSE 102 mg/dL (65-99); POTASSIUM 4.2 mmol/L (3.5-5.1); SODIUM 140 mmol/L (136-145); TOTAL PROTEIN 6.3 g/dL (6.4-8.2); eGFR NON BLACK RACES 60 (>60)
[2023-02-12] MEDS: LEVAQUIN PREMIX IV 500 MG 500 MG/100 ML BAG IV SCH (08:32)
[2023-02-12 08:40] VITALS: BP 141/73; PULSE 103; TEMP 98.2; O2SAT 94
--- NOTE | 2023-02-12 08:51 | DR.PROGNOT ---
HOSPITAL PROGRESS NOTE Progress Note for Day of: Progress Note Date: 02/12/23 Chief Complaint Chief Complaint: doing very well PO lap adolfo day 1 . mild abdominal pain ,no nausea,no vomiting . WBC 15 .. Herbert 1,3 Past Medical Family Social History Allergies: Allergies No Known Allergies Allergy (Verified 02/09/23 21:45) Review Of Systems ROS: No change since H&P Vital Signs Vital Signs: Temperature 98.2 F Temperature 97.9 F Pulse Rate [Left] 103 Pulse Rate [Left] 106 Respiratory Rate 20 Respiratory Rate 18 Respiratory Rate 20 Blood Pressure [Left Arm] 141/73 Blood Pressure [Left Arm] 131/79 O2 Sat by Pulse Oximetry 94 O2 Sat by Pulse Oximetry 93 Physical Exam Oriented: Normal Eyes: Normal Ear: Normal Nose: Normal Throat: Normal Respiratory: Generalized and Diminished Cardiovascular: Normal : Normal GI:Auscultation: Normal GI:Palpation: Normal GI: Tenderness: Diffuse and Moderate; negative Rebound, Guarding or Rigidity Skin: Normal Musculoskeletal: Normal Psychiatric: Normal Mood Description: Calm Affect: Normal Speech Pattern: Clear and Appropriate Laboratory and Diagnostics Result Diagrams: 02/12/23 05:18 02/12/23 05:18 Labs: 02/10/23 18:10 Urine,Clean Catch Urine Culture - Preliminary Laboratory WBC 15.9 X10^3/uL (3.6-10.0) H 02/12/23 05:18 RBC 4.98 X10^6/uL (4.7-6.0) 02/12/23 05:18 Hgb 16.3 g/dL (13.5-18.0) 02/12/23 05:18 Hct 46.0 % (42.0-54.0) 02/12/23 05:18 MCV 92.3 fL (80.0-100.0) 02/12/23 05:18 MCH 32.8 pg (27.0-34.0) 02/12/23 05:18 MCHC 35.5 g/dL (33.0-35.0) H 02/12/23 05:18 RDW 13.2 % (11.6-16.5) 02/12/23 05:18 Plt Count 224 X10^3/uL (150.0-450.0) 02/12/23 05:18 MPV 8.1 fL (7.4-11.0) 02/12/23 05:18 Neut % (Auto) 85.5 % (42.0-75.0) H 02/12/23 05:18 Lymph % (Auto) 6.7 % (21.0-51.0) L 02/12/23 05:18 [place] % (Auto) 7.5 % (0.0-13.0) 02/12/23 05:18 Eos % (Auto) 0.1 % (0.9-2.9) L 02/12/23 05:18 Baso % (Auto) 0.2 % (0.2-1.0) 02/12/23 05:18 Neut # (Auto) 13.6 x10^3/uL (2.2-4.8) H 02/12/23 05:18 Lymph # (Auto) 1.1 X10^3/uL (1.3-2.9) L 02/12/23 05:18 [place] # (Auto) 1.2 x10^3/uL (0.3-0.8) H 02/12/23 05:18 Eos # (Auto) 0.0 x10^3/uL (0.0-0.2) 02/12/23 05:18 Baso # (Auto) 0.0 X10^3/uL (0.0-0.1) 02/12/23 05:18 Absolute Nucleated RBC 0.1 /100WBC 02/12/23 05:18 PT 12.8 SECONDS (11.8-14.3) 02/09/23 21:18 INR Target Range - 02/09/23 21:18 INR 0.98 (0.8-1.3) 02/09/23 21:18 APTT 32.1 SECONDS (22.9-36.5) 02/09/23 21:18 PTT Comment - 02/09/23 21:18 Sodium 140 mmol/L (136-145) 02/12/23 05:18 Corrected Sodium TNP 02/12/23 05:18 Potassium 4.2 mmol/L (3.5-5.1) 02/12/23 05:18 Chloride 105 mmol/L (98-107) 02/12/23 05:18 Carbon Dioxide 26.3 mmol/L (21-32) 02/12/23 05:18 BUN 12 mg/dL (7-18) 02/12/23 05:18 Creatinine 1.27 mg/dL (0.70-1.30) 02/12/23 05:18 Est GFR (MDRD) Af Amer > 60 (>60) 02/12/23 05:18 Est GFR (MDRD) Non-Af 60 (>60) 02/12/23 05:18 Glucose 102 mg/dL (65-99) H 02/12/23 05:18 Calcium 8.0 mg/dL (8.5-10.1) L 02/12/23 05:18 Corrected Calcium 8.8 mg/dL (8.5-10.1) 02/12/23 05:18 Magnesium 2.2 mg/dL (2.0-2.9) 02/10/23 05:19 Total Bilirubin 1.30 mg/dL (0.2-1.0) H 02/12/23 05:18 AST 82 Units/L (15-37) H 02/12/23 05:18 ALT 92 Units/L (12-78) H 02/12/23 05:18 Alkaline Phosphatase 74 Units/L (46-116) 02/12/23 05:18 Creatine Kinase 211 Units/L (39-308) 02/09/23 21:18 Troponin I High Sens 7.8 ng/L (4.0-60.0) 02/09/23 21:18 Total Protein 6.3 g/dL (6.4-8.2) L 02/12/23 05:18 Albumin 3.0 g/dL (3.4-5.0) L 02/12/23 05:18 Globulin 3.3 g/dL (2.5-4.5) 02/12/23 05:18 Albumin/Globulin Ratio 0.9 Ratio (1.1-2.1) L 02/12/23 05:18 Amylase 84 Units/L (25-115) 02/10/23 05:19 Lipase 260 Units/L (73-393) 02/10/23 05:19 Specimen Type Clean catch urine 02/10/23 18:10 Urine Color Dark yellow (YELLOW) 02/10/23 18:10 Urine Appearance Clear (CLEAR) 02/10/23 18:10 Urine pH 8.0 (5.0 - 8.0) 02/10/23 18:10 Ur Specific [place] 1.010 (1.000-1.030) 02/10/23 18:10 Urine Protein 1+ (NEGATIVE) 02/10/23 18:10 Urine Glucose (UA) Negative (NEGATIVE) 02/10/23 18:10 Urine Ketones 1+ (NEGATIVE) 02/10/23 18:10 Urine Blood Negative (NEGATIVE) 02/10/23 18:10 Urine Nitrite Negative (NEGATIVE) 02/10/23 18:10 Urine Bilirubin Negative (NEGATIVE) 02/10/23 18:10 Urine Urobilinogen Normal (NORMAL) 02/10/23 18:10 Ur Leukocyte Esterase 1+ (NEGATIVE) 02/10/23 18:10 Urine RBC None seen /HPF (0-3) 02/10/23 18:10 Urine WBC 3-5 /HPF (0-5) 02/10/23 18:10 Ur Squamous Epith Cells Rare /HPF (NEGATIVE) 02/10/23 18:10 Amorphous Sediment 1+ /HPF (NEGATIVE) 02/10/23 18:10 Urine Bacteria Negative /HPF (NEGATIVE) 02/10/23 18:10 Ur Culture Indicated? Yes/culture set up 02/10/23 18:10 Assessment and Plan 1: acute calculus cholecystitis with gangrenous changes . s/p lap adolfo . to keep on oral Cipro 500 BID for one week .. f/u in one week . Problem Patient Problems: Patient Problems (Updated 02/10/23 @ 22:08 by Darek Landa) Abdominal pain (Acute) R10.9 Cholelithiasis (Acute) K80.20 Enlarged prostate (Acute) N40.0 Leukocytosis (Acute) D72.829
== END 2023-02-12 12:20 | disposition home or self-care (01) ==
LOC: MED/SURG 21:03 → ER 21:03 → MED/SURG 02-10 01:50
PROVIDERS: ADMIT Internal Medicine; ATTEND Internal Medicine
DX: R10.9 Unspecified abdominal pain; K80.12 Calculus of gallbladder with acute and chronic cholecystitis without obstruction; D72.829 Elevated white blood cell count, unspecified; N40.0 Benign prostatic hyperplasia without lower urinary tract symptoms; Z01.811 Encounter for preprocedural respiratory examination; Z01.810 Encounter for preprocedural cardiovascular examination; R07.9 Chest pain, unspecified; Z01.812 Encounter for preprocedural laboratory examination